=== PATIENT | female | born 1945 | race Caucasian/White ===

== ENCOUNTER → 2023-08-11 | Day surgery (SDC) | payer OTHER | END | disposition home or self-care (01) | LOC: JRADUS-SUR 08:30 | PROVIDERS: ATTEND Internal Medicine | PROC: 0H9T3ZX Drainage of Right Breast, Percutaneous Approach, Diagnostic (ICD-10-PCS; principal; 2023-08-11) | DX: N63.10 Unspecified lump in the right breast, unspecified quadrant (principal); Z53.8 Procedure and treatment not carried out for other reasons | CPT/HCPCS: 76642-TC-RT; 77065-TC; G0279-TC ==